=== PATIENT | female | born 1930 | race Caucasian/White ===

== ENCOUNTER 2016-07-06 14:32 | Emergency (ER) | payer MEDICARE, BC, OTHER ==
[2016-07-06 14:44] VITALS: BP 159/72; PULSE 70; RESP 18; TEMP 97.1
--- NOTE | 2016-07-06 15:02 | XR ---
EXAMINATION TYPE: XR wrist complete LT DATE OF EXAM: 07/06/2016 2:53 PM COMPARISON: NONE HISTORY: 85-year-old female left wrist pain and swelling after fall today TECHNIQUE: 4 views FINDINGS: Marked osteopenia. There is prominent soft tissue swelling at the wrist especially dorsally subtle co rtical step-off in the region of Aura's tubercle and subtle intra-articular lucency seen involving the distal radial epiphysis and metaphysis. There is prominence to the scapholunate interval at 2.8 m m. Degenerative changes at the base of the thumb and the triscaphe joint. IMPRESSION: 1. Subtle nondisplaced fracture of the distal radial epiphysis and metaphysis with intra-articular ex tension into the radiocarpal joint. 2. Dorsal soft tissue swelling. 3. Prominent scapholunate interval suggests age-indeterminate scapholunate ligament injury. 4. 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
--- NOTE | 2016-07-06 15:11 | ED ---
Upper Extremity HPI - General Chief Complaint: Extremity Injury, Upper Stated Complaint: Fall Time Seen by Provider: 07/06/16 14:46 Source: EMS Mode of arrival: EMS Limitations: no limitations - History of Present Illness Initial Comments: She is from one of the local nursing homes, she was walking with a aid, she tripped and she fell, she tried to break the fall with her left forearm now complaining about pain in there is some swelling. She is accompanied by her daughter and granddaughter in the ER based on the care home information on her said she didn't hit her head there is no head injury she did pass out and no injury to the upper or lower extremity except the left forearm injury. She denies any head injury no neck injury no chest pain or shortness of breath no abdominal pain no frequency urgency dysuria this is according to the daughter and granddaughter she does have a dementia - Related Data Home Medications Medication Instructions Recorded Confirmed Acetaminophen Tab [Tylenol Tab] 650 mg PO Q6H PRN 07/06/16 07/06/16 Bisacodyl [Dulcolax] 10 mg RECTAL DAILY PRN 07/06/16 07/06/16 Carvedilol [Coreg] 12.5 mg PO DAILY 07/06/16 07/06/16 Docusate [Colace] 100 mg PO HS 07/06/16 07/06/16 Furosemide [Lasix] 40 mg PO DAILY 07/06/16 07/06/16 Losartan Potassium 100 mg PO DAILY 07/06/16 07/06/16 Magnesium Hydroxide [Milk of 2,400 mg PO Q72H 07/06/16 07/06/16 Magnesia] Nitroglycerin Sl Tabs [Nitrostat] 0.4 mg SUBLINGUAL Q5M PRN 07/06/16 07/06/16 Nystatin [Nystop] 1 applic TOPICAL TID 07/06/16 07/06/16 Potassium Chloride [Klor-Con 10 meq PO DAILY 07/06/16 07/06/16 Sprinkle] fentaNYL [Duragesic 12MCG/HR] 1 patch TRANSDERM Q72H 07/06/16 07/06/16 Allergies Allergy/AdvReac Type Severity Reaction Status Date / Time No Known Allergies Allergy Verified 07/06/16 15:02 Review of Systems ROS Statement: Those systems with pertinent positive or pertinent negative responses have been documented in the HPI. ROS Other: All systems not noted in ROS Statement are negative. Past Medical History Past Medical History: Dementia History of Any Multi-Drug Resistant Organisms: None Reported Past Surgical History: No Surgical Hx Reported Past Psychological History: No Psychological Hx Reported Smoking Status: Never smoker Past Alcohol Use History: None Reported Past Drug Use History: None Reported General Exam - General Exam Comments Initial Comments: General: The patient is awake and alert, in no distress, and does not appear acutely ill. Her conversation is consistent with dementia Skin: Skin is warm and dry and no rashes or lesions are noted. Eye: External ocular muscles are intact Ears, nose, mouth and throat: There are moist mucous membranes and no oral lesions. Neck: The neck is supple, there is no tenderness Cardiovascular: There is a regular rate and rhythm. No murmur, rub or gallop is appreciated. Respiratory: To auscultation bilateral, no wheezing no rhonchi no distress respiratory smith noticed Gastrointestinal: Soft, non-distended, non-tender abdomen without masses or organomegaly noted. There is no rebound or guarding present. Bowel sounds are unremarkable. Back: There is no tenderness to palpation in the midline. There is no obvious deformity. Musculoskeletal: Normal ROM, no tenderness, over the lower extremities in the right upper extremity but the left forearm especially wrist area seems swollen no neurovascular deficits noticed. Refill is intact but there is a swelling and deformity around the left breast mild range of motion is compromised at the left wrist Neurological: CN II-XII intact, Cranial nerves III through XII are intact. There are no obvious motor or sensory deficits. Coordination appears grossly intact. Speech is normal. Psychiatric: Cooperative, bit anxious and has a dementia. Limitations: no limitations Course Vital Signs 07/06/16 14:41 Temperature 97.1 F L Pulse Rate 70 Respiratory 18 Rate Blood Pressure 159/72 O2 Sat by Pulse [address] with the Dr[address] Jeter he recommended we do a short arm splint and he will see her in her office - Reevaluation(s) Reevaluation #1: 07/06/16 15:46 She is on a fentanyl patch and not currently complaining whole lot of pain maybe deficits that C reason, we'll refrain from any more medication that could increase her chances of fall and further injuries, this was discussed with the daughter and granddaughter considering she is on a fentanyl patch they agreed to refrain from additional pain meds Disposition Clinical Impression: Left wrist fracture Disposition: HOME SELF-CARE Referrals: Shana Mccann MD [Primary Care Provider] - 1-2 days Uma Gotti DO [Doctor of Osteopathic Medicine] - 1-2 days
[2016-07-06] MEDS ORDERED: ONDANSETRON ODT 4 MG TAB PO STA (15:17)
[2016-07-06] MEDS ORDERED: MORPHINE SULFATE 10 MG/ML SYRINGE IM STA (15:17)
== END 2016-07-06 16:38 | disposition home or self-care (01) ==
LOC: EC 14:32 → EEVIPCON 14:32 → EC 16:38
DX: S62.102A Fracture of unspecified carpal bone, left wrist, initial encounter for closed fracture (principal); F03.90 Unspecified dementia, unspecified severity, without behavioral disturbance, psychotic disturbance, mood disturbance, and anxiety; Z79.899 Other long term (current) drug therapy; W17.89XA Other fall from one level to another, initial encounter; Y93.01 Activity, walking, marching and hiking; Y92.129 Unspecified place in nursing home as the place of occurrence of the external cause
CPT/HCPCS: 96372; 99285; 29125; 73110; J2270